=== PATIENT | female | born 1970 | race Caucasian/White ===

== ENCOUNTER 2017-02-03 22:18 | Emergency (ER) | payer OTHER ==
[~2017-02-03] VITALS: Ht 162.6 cm; Wt 129.4 kg
[~2017-02-03 22:18] MED LIST: ADVAIR HFA120 INHAL1 IH; ALEVE220 MG PO; BENZONATATE100 MG PO; BUPROPION HCL150 M2 PO; CEFUROXIME500 MG PO; COZAAR100 MG PO; CYCLOBENZAPRINE10 MG PO; HYDROCHLOROTHIA25 MG PO; INDOCIN25 MG PO; LOSARTAN POTAS100 MG PO; MYCOSTATIN 100,60 ML PO; NICOTINE PATCH1 EAC2 TD; NORVASC10 MG PO; PERCOCET 5/31 TABLET PO; PHENERGAN-CODE120 ML PO; PREDNISONE20 MG PO; PREDNISONE50 MG PO; PROVENTIL,2.5 MG/3 M IH; SINGULAIR10 MG PO; ULTRACET1 TABLET PO; VALIUM5 MG PO; ZOFRAN ODT4 MG PO; ZOLOFT100 MG PO
[2017-02-04] MEDS ORDERED: TESSALON PERLE100 MG PO (00:10)
[2017-02-04] MEDS ORDERED: VENTOLIN HFA18 GM IH (00:10)
[2017-02-04] MEDS ORDERED: LEVAQUIN500 MG PO (00:10)
[2017-02-04] MEDS ORDERED: PREDNISONE20 MG PO (00:10)
[2017-02-04 00:20] VITALS: BP 149/104
== END 2017-02-04 00:24 | disposition home or self-care (01) ==
LOC: EXP 22:18 → EME 22:18 → EXP 02-04 00:24
DX: J44.0 Chronic obstructive pulmonary disease with (acute) lower respiratory infection (principal); J20.9 Acute bronchitis, unspecified; F17.200 Nicotine dependence, unspecified, uncomplicated; I10 Essential (primary) hypertension
CPT/HCPCS: 94640; 99281; 99284; J7512

== ENCOUNTER 2017-02-19 14:24 | Emergency (ER) | payer SELFPAY ==
[~2017-02-19] VITALS: Ht 154.9 cm; Wt 134.0 kg
[~2017-02-19 14:24] MED LIST changes: +LEVAQUIN500 MG PO; +TESSALON PERLE100 MG PO; +VENTOLIN HFA18 GM IH
[2017-02-19] MEDS ORDERED: OXYCODONE HCL15 MG PO (16:00)
[2017-02-19 16:33] LABS: HEMATOCRIT 37.3 % (36.0-46.0); MCH 29.2 PG (29.0-34.0); MCHC 32.4 G/DL (30.0-36.0); MCV 90.1 FL (83-99); MEAN PLAT.VOLUME 10.6 uM^3 (9.5-12.4); PLATELET COUNT 198 K/uL (156-360); RBC DIS.WIDTH-CV 14.5 % (11.8-14.6); RBC DIS.WIDTH-SD 47.6 % (39-53); RED BLOOD COUNT 4.14 M/uL (3.80-5.20); WHITE BLOOD COUNT 12.6 K/uL (4.1-10.2)
[2017-02-19 16:41] LABS: CHLORIDE 103 mEq/L (99-109); POTASSIUM 4.1 mEq/L (3.7-5.4); SODIUM 136 mEq/L (136-147)
[2017-02-19 16:43] LABS: GLUCOSE 95 mg/dL (70-99)
[2017-02-19 16:45] LABS: ANION GAP 9 MEQ/L (2-14)
[2017-02-19 16:47] LABS: GFR ESTIMATE (CALCULATED) > 59 mL/min/
[2017-02-19 16:48] LABS: UREA NITROGEN (BUN) 10 mg/dL (9-23)
[2017-02-19 16:55] LABS: TROP-I INTERPRETATION NEGATIVE; TROPONIN-I < 0.01 ng/mL (0.0-0.30)
[2017-02-19] MEDS ORDERED: KEFLEX500 MG PO (17:41)
[2017-02-19 17:49] VITALS: BP 137/81
== END 2017-02-19 18:01 | disposition home or self-care (01) ==
LOC: EME 14:24
PROVIDERS: Nurse Practitioner Family
DX: L03.116 Cellulitis of left lower limb (principal); L03.115 Cellulitis of right lower limb; F41.9 Anxiety disorder, unspecified; I10 Essential (primary) hypertension; I50.9 Heart failure, unspecified; F17.200 Nicotine dependence, unspecified, uncomplicated
CPT/HCPCS: 71020; 80048; 83880; 84484; 85027; 93005; 93970; 99281; 99284

== ENCOUNTER 2017-10-04 18:41 | Emergency (ER) | payer OTHER ==
[~2017-10-04] VITALS: Ht 162.6 cm; Wt 138.9 kg
[~2017-10-04 18:41] MED LIST changes: +KEFLEX500 MG PO; +OXYCODONE HCL15 MG PO
[2017-10-04 19:36] LABS: HEMATOCRIT 39.6 % (36.0-46.0); HEMOGLOBIN 12.9 G/DL (11.9-15.5); MCH 29.9 PG (29.0-34.0); MCHC 32.6 G/DL (30.0-36.0); MCV 91.7 FL (83-99); PLATELET COUNT 186 K/uL (156-360); RBC DIS.WIDTH-CV 13.8 % (11.8-14.6); RBC DIS.WIDTH-SD 47.3 % (39-53); RED BLOOD COUNT 4.32 M/uL (3.80-5.20); WHITE BLOOD COUNT 13.2 K/uL (4.1-10.2)
[2017-10-04 19:48] LABS: CHLORIDE 105 mEq/L (99-109); POTASSIUM 4.5 mEq/L (3.7-5.4); SODIUM 137 mEq/L (136-147)
[2017-10-04 19:49] LABS: GLUCOSE 115 mg/dL (70-99)
[2017-10-04 19:53] LABS: CREATININE 0.9 mg/dL (0.6-1.3); GFR ESTIMATE (CALCULATED) > 59 mL/min/
[2017-10-04 19:54] LABS: UREA NITROGEN (BUN) 16 mg/dL (9-23)
[2017-10-04 23:13] LABS: TROP-I INTERPRETATION NEGATIVE; TROPONIN-I < 0.01 ng/mL (0.0-0.30)
[2017-10-04 23:51] VITALS: BP 111/64
== END 2017-10-05 00:15 | disposition home or self-care (01) ==
LOC: EME 18:41
PROVIDERS: Nurse Practitioner Family
DX: J10.1 Influenza due to other identified influenza virus with other respiratory manifestations (principal); F17.200 Nicotine dependence, unspecified, uncomplicated; J44.9 Chronic obstructive pulmonary disease, unspecified; I10 Essential (primary) hypertension; F32.9 Major depressive disorder, single episode, unspecified; Z88.6 Allergy status to analgesic agent; Z88.5 Allergy status to narcotic agent
CPT/HCPCS: 71046; 80048; 84484; 85027; 87502; 93005; 94640; 99281; 99284